=== PATIENT | female | born 1965 | race Caucasian/White ===

== ENCOUNTER 2017-02-04 10:40 | Emergency (ER) | payer OTHER ==
[~2017-02-04] VITALS: Ht 170.2 cm; Wt 53.8 kg
[2017-02-04 10:47] VITALS: BP 126/79
== END 2017-02-04 13:16 | disposition home or self-care (01) ==
LOC: ED 13:10
DX: S59.902A Unspecified injury of left elbow, initial encounter (principal); M77.9 Enthesopathy, unspecified; X58.XXXA Exposure to other specified factors, initial encounter; Y93.89 Activity, other specified; Y92.89 Other specified places as the place of occurrence of the external cause; Y99.8 Other external cause status
CPT/HCPCS: 99284

== ENCOUNTER 2017-09-09 14:53 | Emergency (ER) | payer OTHER ==
[~2017-09-09] VITALS: Ht 167.6 cm; Wt 57.3 kg
[2017-09-09 14:56] VITALS: BP 115/75
== END 2017-09-09 18:45 | disposition home or self-care (01) ==
LOC: ED 18:39
DX: G89.11 Acute pain due to trauma (principal); M25.532 Pain in left wrist
CPT/HCPCS: 29260; 99284

== ENCOUNTER 2018-07-06 12:40 | Emergency (ER) | payer OTHER ==
[~2018-07-06] VITALS: Ht 170.2 cm; Wt 54.7 kg
[2018-07-06 12:48] VITALS: BP 116/69
== END 2018-07-06 14:06 | disposition home or self-care (01) ==
LOC: ED 13:09
DX: B34.9 Viral infection, unspecified (principal); F17.200 Nicotine dependence, unspecified, uncomplicated
CPT/HCPCS: 71046; 99283

== ENCOUNTER 2018-09-09 17:48 | Emergency (ER) | payer OTHER ==
[~2018-09-09] VITALS: Ht 170.2 cm; Wt 122.8 kg
[2018-09-09 18:49] VITALS: BP 112/68
--- NOTE | 2018-09-09 19:55 | NUR ---
Patient/Caregiver given discharge instructions and they have confirmed that they understand the instructions. Patient ambulatory with steady gait.
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
== END 2018-09-09 20:03 | disposition home or self-care (01) ==
LOC: ED 19:57
DX: S93.611A Sprain of tarsal ligament of right foot, initial encounter (principal); W00.0XXA Fall on same level due to ice and snow, initial encounter; Y93.89 Activity, other specified; Y92.89 Other specified places as the place of occurrence of the external cause; Y99.8 Other external cause status
CPT/HCPCS: 29515; 99283